=== PATIENT | female | born 1945 | race Caucasian/White ===

== ENCOUNTER 2018-11-29 10:29 | Inpatient (IN) ==
[2018-11-29] MEDS ORDERED: NORMAL SALINE 1,000 ML IV ONE (10:53)
[2018-11-29] MEDS ORDERED: MORPHINE SULFATE 2 MG/ML DISP.SYRIN IV ONE ×2 (10:53→12:58)
[2018-11-29] MEDS ORDERED: DIATRIZOATE MEGLUMINE, SODIUM 30 ML BTL PO ONE (10:53)
[2018-11-29] MEDS ORDERED: ONDANSETRON HCL/PF 2 MG/ML VIAL IV ONE (10:54)
--- NOTE | 2018-11-29 11:00 | ERNOTE ---
Abdominal HPI - Narrative Date of Service: 11/29/18 - General Chief Complaint: Abdominal Pain Time Seen by Provider: 11/29/18 10:45 Source: patient Exam Limitations: no limitations - Immun/Allergies/Home Medications Immunizatons: IMMUNIZATION HX Immunizations Up to Date Yes History of Influenza Vaccine Yes Hx Pneumococcal Vaccination Yes Allergies/Adverse Reactions: Allergies meperidine [From Demerol] Allergy (Verified 11/29/18 10:36) Home Medications: HOME MEDICATIONS Pantoprazole Sodium 40 mg PO DAILY 12/25/16 [Last Taken Unknown] Paroxetine Cr 20 mg PO DAILY 12/25/16 [Last Taken Unknown] Simvastatin 20 mg PO DAILY 12/25/16 [Last Taken Unknown] - History of Present Illness Narrative: Patient presents to the ED for 2 days of progressive symptoms that she feels is c/w her prior SBO episodes. She has had abdominal pain, vomiting (yesterdays food) and bloating. Pain waxes and wanes but can be severe. Minimal stool output. No urinary Sx. No CP or SOB. Has not seen anyone else for this. Nothing really seems to make it better or worse. has not seen anyone else for this. No blood in stool or vomit. Timing: other - fluctuating intensity Quality: severe, cramping Activities at Onset: none Modifying Factors - (Improves): Present: other - nothing Modifying Factors - (Worsens): Present: other - nothign Associated Symptoms: Present: nausea, vomiting. Absent: chest pain, fever/chills Prior Abdominal Problems: Present: similar symptoms Prior Treatment: Absent: recently seen, currently on antibiotics Review of Systems - Review of Systems Constitutional: Absent: fever ENT: Absent: sore throat Respiratory: Absent: shortness of breath Cardiology: Absent: chest pain Gastrointestinal/Abdominal: Present: See HPI Genitourinary: Absent: dysuria All Other Systems: All systems neg except as marked Medical History (Updated 11/29/18 @ 11:00 by Donn Thompson MD) Anxiety History of hysterectomy Surgical History: Surgical History (Updated 11/29/18 @ 10:39 by Dion Olivia RN) Bowel obstruction x2 History of cholecystectomy Hx of right knee surgery Hx of tubal ligation Family History: Family History (Last Reviewed 11/29/18 @ 10:58 by Donn Thompson MD) Father Heart block History of stomach ulcers Mother Heart block Social History: (Last Reviewed 11/29/18 @ 10:58 by Donn Thompson MD) Tobacco: Smoking Status: Current every day smoker Alcohol: alcohol intake: never Substance Use: substance use type: does not use Physical Exam - Physical Exam General Appearance: Present: alert, no apparent distress Head Exam: Present: normal inspection, no evidence of injury Eye Exam: Normal inspection: bilateral, PERRL: bilateral Ears, Nose, Throat: Present: normal ENT inspection Neck: Present: normal inspection, nontender Respiratory: Present: no respiratory distress, normal breath sounds, no accessory muscle use, lungs clear Cardiovascular/Chest: Present: regular rate, rhythm, normal peripheral pulses Gastrointestinal/Abdominal: Present: nondistended, soft, other - decreased bowel sounds. Mild diffuse tendneress, most prominent in LLQ. No masses or clear acute peritoneal signs Back Exam: Absent: CVA tenderness (R), CVA tenderness (L) Extremity Exam: Present: normal inspection, normal range of motion Neurological Exam: Present: alert, no motor/sensory deficits Skin Exam: Present: normal color, warm/dry Progress - Results and Orders Patient's Lab Results:: I have reviewed the patient's lab results. - Vital Signs Patient's Vital Signs:: I have reviewed the patient's vital signs. Vital Signs: Vital Signs 11/29/18 10:29 Temperature 36.0 C Pulse Rate 77 Respiratory Rate 16 Blood Pressure 140/90 H O2 Sat by Pulse Oximetry 100 - X-Ray X-Ray #1 X-Ray: chest Interpretation: Interp. by me X-ray Comments: I reviewed official radiology report - CT/Ultrasound CT/Ultrasound Narrative: I reviewed official radiology report for CT scan abd/pelvis - Progress/Reassessment Chief Complaint: Abdominal Pain Progress Note-Subjective: 11/29/18 10:59 patient states she can take morphine without difficulty 11/29/18 15:58 D/W Dr Dudley and Dr Tubbs, patient will be admitted. NG placed. D/W patient, she understands, questions answered. Departure Clinical Impression: Abdominal pain, SBO (small bowel obstruction) - Departure Disposition: Still a patient Condition: Stable
[2018-11-29 11:10] LABS: Hematocrit 41.9 % (37.0-47.0); Hemoglobin 15.1 gm/dL (12.5-16.0); Mean Corpuscular Hemoglobin 32.1 pg (27-31); Mean Platelet Volume 8.6 fl (8-12.5); Neutrophil # 10.4 K/mm3 (1.3-6.0); Neutrophil % 86.4 % (42-75.0); Platelet Count 350 K/mm3 (150-450); Red Blood Count 4.71 M/mm3 (4.2-5.4); Red Cell Distribution Width 11.7 % (11.5-14.0)
[2018-11-29 11:27] LABS: Albumin * 4.2 gm/dl (3.4-5.0); Anion Gap 11.7 mmol/L (6.8-13.8); BUN/Creatinine Ratio 11.1 (9.0-21.6); Bilirubin, Total 0.7 mg/dL (0.0-1.1); Ca. Corrected For Albumin 8.9 mg/dL (8.4-10.2); Calcium * 9.4 mg/dL (7.9-10.9); Carbon Dioxide 30.1 mmol/L (24-32.6); Potassium 3.8 mmol/L (3.4-4.6); Total Protein 7.3 gm/dL (6.2-8.2)
[2018-11-29 12:54] LABS: Urine Bilirubin Negative (NEGATIVE); Urine Blood Negative /ul (NEGATIVE); Urine Ketone Negative (NEGATIVE); Urine Nitrite Negative (NEGATIVE); Urine Protein Negative (NEGATIVE); Urine Specific Gravity <=1.005 SP.GR. (1.005-1.010); Urine Urobilinogen Normal (NORMAL); Urine pH 6.5 pH (5.0-7.0)
[2018-11-29 13:10] LABS: Urine Appearance Clear (CLEAR); Urine Color Yellow
[2018-11-29 13:12] LABS: Urine Bacteria None Seen; Urine RBC None Seen /hpf (0-5); Urine WBC 0-5 /hpf (0-5)
--- NOTE | 2018-11-29 16:53 | HP ---
Chief Complaint - Chief Complaint Date of Service: 11/29/18 Time of Service: 16:36 Chief Complaint: nausea/vomiting and abdominal pain History of Present Illness: Ivanna Renee is a 73-year-old white female with past medical history of small bowel obstructions in the past, anxiety disorder, hyperlipidemia, GERD who was admitted on 11/29/2018 because of nausea, vomiting, abdominal pain. 2 days prior to admission the patient started having mid abdominal pain 8/10 which waxed and waned and the patient took a laxative which which brought out small pebble-like stools. Her last bowel movement was 3 days ago. She says she usually goes every other day. Today her abdominal pain was associated with nausea and vomiting of about 5 times and so she went to our emergency room as just just felt like her other prior history of small bowel obstructions. She has had previous abdominal surgeries in the past and in the she had her first small bowel obstruction for which she had to undergo exploratory laparotomy with lysis of adhesions. 8 years after that she again had her second small bowel obstruction and again had to undergo surgery. In the emergency room , her WBC was elevated at [address] scan of the abdomen showed partial small bowel obstructio. The patient was admitted for further evaluation and treatment. She denies any chest pains, shortness of breath, palpitations, fever, chills. She did not have any bleeding or anesthesia complications from her prior surgeries but did have facial swelling with Demerol. Medical History (Updated 11/29/18 @ 16:52 by Jamari Tubbs MD) Anxiety History of hysterectomy Surgical History: Surgical History (Updated 11/29/18 @ 10:39 by Dion Olivia RN) Bowel obstruction x2 History of cholecystectomy Hx of right knee surgery Hx of tubal ligation Family History: Family History (Last Reviewed 11/29/18 @ 16:01 by Eva Chapa RN) Father Heart block History of stomach ulcers Mother Heart block Social History: (Last Updated 11/29/18 @ 16:02 by Eva Chapa RN) Social History: [facility]: No lives independently: Yes household members: none Tobacco: Smoking Status: Former smoker Alcohol: alcohol intake: never Substance Use: substance use type: does not use Review Of Systems (GEN) - Review of Systems Generalized/Overall Review: Absent: Chills, Fever EENTM: Absent: Blurred Vision Respiratory: Absent: Cough, Shortness of Breath, Orthopnea Cardiac: Absent: Chest Pain, Edema, Palpitations Abdominal: Present: Nausea, Vomiting, Abdominal Pain, Other - no hematemesis. Absent: Melena, Bright blood from rectum Genitourinary: Absent: Urgency, Frequency Musculoskeletal: Absent: Joint Pain, Back Pain Neurological: Present: Anxiety Skin: Absent: Lesions, Rash Endocrine: Absent: Intolerance to Cold, Intolerance to Heat Misc: All systems neg except as marked Immunizations: IMMUNIZATION HX Immunizations Up to Date Yes History of Influenza Vaccine Yes Hx Pneumococcal Vaccination Yes Allergies/Adverse Reactions: Allergies Allergy/AdvReac Type Severity Reaction Status Date / Time meperidine [From Demerol] Allergy Verified 11/29/18 16:02 Home Medications: HOME MEDICATIONS Pantoprazole Sodium 40 mg PO 1600 12/25/16 [Last Taken Unknown] Paroxetine Cr 20 mg PO 1600 12/25/16 [Last Taken Unknown] Simvastatin 20 mg PO 159912/25/16 [Last Taken Unknown] Exam - Exam Vital Signs: Vital Signs - Last Taken Temp 37.5 C 11/29/18 16:03 Pulse 64 11/29/18 16:03 Resp 15 11/29/18 16:03 BP 148/66 11/29/18 16:03 Pulse Ox 97 11/29/18 16:03 Constitutional: Present: Alert, Oriented x3, Cooperative, Thin and frail ENT Exam: Present: hearing grossly normal Eye Exam: bilateral eye: normal inspection, PERRL, EOMI Neck: Present: supple Respiratory: Present: decreased breath sounds, No rales, No wheezing Cardiovascular/Chest: Present: regular rate, rhythm, no JVD, no murmur Abdomen: Present: no rebound tenderness, tender, distended - slightly, hypoactive Extremity: Present: no pedal edema, no calf tenderness Diagnostic Studies: Abnormal Lab Results 11/29/18 11/29/18 Range/Units 11:02 11:02 WBC 12.0 H (4.0-10.5) K/mm3 MCH 32.1 H (27-31) pg Immature Gran # (Auto) 0.05 H (0.000-0.0310) K/mm3 Neutrophils % 86.4 H (42-75.0) % Lymphocytes % 7.8 L (20-51) % Neutrophils # 10.4 H (1.3-6.0) K/mm3 Lymphocytes # 0.93 L (1.5-3.5) k/mm3 Sodium 130 L (132-142) mmol/L Chloride 92 L (97-106) mmol/L Random Glucose 124 H (70-110) mg/dL Laboratory Results WBC 12.0 K/mm3 (4.0-10.5) H 11/29/18 11:02 RBC 4.71 M/mm3 (4.2-5.4) 11/29/18 11:02 Hgb 15.1 gm/dL (12.5-16.0) 11/29/18 11:02 Hct 41.9 % (37.0-47.0) 11/29/18 11:02 MCV 89.0 fl (78-100) 11/29/18 11:02 MCH 32.1 pg (27-31) H 11/29/18 11:02 MCHC 36.0 g/dl (32-36) 11/29/18 11:02 RDW 11.7 % (11.5-14.0) 11/29/18 11:02 Plt Count 350 K/mm3 (150-450) 11/29/18 11:02 MPV 8.6 fl (8-12.5) 11/29/18 11:02 Immature Gran % (Auto) 0.40 % (0.001-0.429) 11/29/18 11:02 Immature Gran # (Auto) 0.05 K/mm3 (0.000-0.0310) H 11/29/18 11:02 86.4 % (42-75.0) H 11/29/18 11:02 7.8 % (20-51) L 11/29/18 11:02 4.6 % (0.0-9) 11/29/18 11:02 0.5 % (0.0-3.0) 11/29/18 11:02 0.3 % (0.0-1.0) 11/29/18 11:02 Nucleated RBC % 0.0 k/mm3 (0-1) 11/29/18 11:02 10.4 K/mm3 (1.3-6.0) H 11/29/18 11:02 0.93 k/mm3 (1.5-3.5) L 11/29/18 11:02 0.6 k/mm3 (0.0-1.0) 11/29/18 11:02 0.1 k/mm3 (0.0-0.7) 11/29/18 11:02 Absolute Basophils 0.0 k/mm3 (0.0-0.1) 11/29/18 11:02 Sodium 130 mmol/L (132-142) L 11/29/18 11:02 130 mmol/L (130-142) 11/29/18 11:02 Potassium 3.8 mmol/L (3.4-4.6) 11/29/18 11:02 Chloride 92 mmol/L (97-106) L 11/29/18 11:02 Carbon Dioxide 30.1 mmol/L (24-32.6) 11/29/18 11:02 11.7 mmol/L (6.8-13.8) 11/29/18 11:02 BUN 7 mg/dL (3-23) 11/29/18 11:02 0.63 mg/dL (0.4-1.4) 11/29/18 11:02 Est GFR (Non-Af Amer) 98 mL/min (60-130) 11/29/18 11:02 11.1 (9.0-21.6) 11/29/18 11:02 124 mg/dL (70-110) H 11/29/18 11:02 Calcium 9.4 mg/dL (7.9-10.9) 11/29/18 11:02 Calcium Adj for Albumin 8.9 mg/dL (8.4-10.2) 11/29/18 11:02 0.7 mg/dL (0.0-1.1) 11/29/18 11:02 AST 22 U/L (0-48) 11/29/18 11:02 ALT 20 U/L (19-67) 11/29/18 11:02 71 U/L (50-170) 11/29/18 11:02 7.3 gm/dL (6.2-8.2) 11/29/18 11:02 4.2 gm/dl (3.4-5.0) 11/29/18 11:02 Amylase 72 U/L (25-115) 11/29/18 11:02 116 U/L (73-393) 11/29/18 11:02 Yellow 11/29/18 12:45 Clear (CLEAR) 11/29/18 12:45 6.5 pH (5.0-7.0) 11/29/18 12:45 Ur Specific [place] <=1.005 SP.GR. (1.005-1.010) 11/29/18 12:45 Negative mg/dL (NEGATIVE) 11/29/18 12:45 Negative mg/dL (NEGATIVE) 11/29/18 12:45 Negative mg/dL (NEGATIVE) 11/29/18 12:45 Negative /ul (NEGATIVE) 11/29/18 12:45 Negative (NEGATIVE) 11/29/18 12:45 Negative mg/dl (NEGATIVE) 11/29/18 12:45 Normal EU/dl (NORMAL) 11/29/18 12:45 Ur Leukocyte Esterase Negative /ul (NEGATIVE) 11/29/18 12:45 None seen /hpf (0-5) 11/29/18 12:45 0-5 /hpf (0-5) 11/29/18 12:45 Ur Epithelial Cells 0-5 /hpf (0-5) 11/29/18 12:45 None seen (NONE) 11/29/18 12:45 No culture indicated 11/29/18 12:45 Assessment/Plan - Narrative Narrative: Abdominal pain, nausea, vomiting secondary to partial small bowel obstruction on CT scan. We will keep patient n.p.o. and continue with IV fluids and IV pain medication. An NGT has been inserted in the emergency room and the tip is in the mid abdomen. Surgical consult has been put by emergency room doctor and she will be seeing the patient. Hopefully the patient will open up by herself conservatively but if the patient will need exploratory laparotomy she may proceed with anticipated procedure pending EKG. Her chest x-ray showed no acute cardiopulmonary findings. - Assessment/Plan (1) Abdominal pain Problem: Acute Qualifiers: Abdominal location: unspecified location Qualified Code(s): R10.9 - Unspecified abdominal pain (2) SBO (small bowel obstruction) Assessment: partial on CTS Problem: Acute (3) Anxiety disorder Problem: Chronic Qualifiers: Anxiety disorder type: generalized anxiety disorder Qualified Code(s): F41.1 - Generalized anxiety disorder (4) GERD (gastroesophageal reflux disease) Problem: Chronic Qualifiers: Esophagitis presence: esophagitis presence not specified Qualified Code(s): K21.9 - Gastro-esophageal reflux disease without esophagitis
[2018-11-29] MEDS ORDERED: ONDANSETRON HCL/PF 2 MG/ML VIAL IV PRN (16:54)
[2018-11-29] MEDS ORDERED: MORPHINE SULFATE 4 MG/ML SYRG IV PRN (16:55)
[2018-11-29] MEDS: PANTOPRAZOLE SODIUM 40 MG in NORMAL SALINE 100 ML IV SCH (17:06)
[2018-11-29] MEDS: DEXTROSE 5%-NORMAL SALINE 1,000 ML IV PRN (17:19)
[2018-11-30] MEDS: DEXTROSE 5%-NORMAL SALINE 1,000 ML IV PRN (03:30)
[2018-11-30 06:15] LABS: Hematocrit 34.7 % (37.0-47.0); Hemoglobin 12.2 gm/dL (12.5-16.0); Mean Cell Volume 90.8 fl (78-100); Mean Corpuscular Hemoglobin 31.9 pg (27-31); Mean Corpuscular Hgb Conc 35.2 g/dl (32-36); Mean Platelet Volume 9.2 fl (8-12.5); Neutrophil # 5.2 K/mm3 (1.3-6.0); Neutrophil % 69.9 % (42-75.0); Platelet Count 279 K/mm3 (150-450); Red Blood Count 3.82 M/mm3 (4.2-5.4); Red Cell Distribution Width 11.9 % (11.5-14.0); White Blood Count 7.4 K/mm3 (4.0-10.5)
[2018-11-30 06:29] LABS: Albumin * 2.8 gm/dl (3.4-5.0); Anion Gap 9.8 mmol/L (6.8-13.8); BUN/Creatinine Ratio 6.5 (9.0-21.6); Bilirubin, Total 0.6 mg/dL (0.0-1.1); Ca. Corrected For Albumin 8.3 mg/dL (8.4-10.2); Calcium * 7.7 mg/dL (7.9-10.9); Carbon Dioxide 27.5 mmol/L (24-32.6); Potassium 3.3 mmol/L (3.4-4.6); Total Protein 5.2 gm/dL (6.2-8.2)
[2018-11-30] MEDS: POTASSIUM CHLORIDE 20 MEQ in DEXTROSE 5%-NORMAL SALINE 990 ML IV SCH ×2 (07:57→16:35)
--- NOTE | 2018-11-30 09:56 | CONS ---
[facility] - General Date of Service: 11/29/18 Narrative: pSBO Source: patient Exam Limitations: no limitations - History of Present Illness Initial Comments: Sandra is a pleasant 73-year-old female who presented to the emergency room and was found to have a partial small bowel obstruction. She started to feel poorly yesterday. She has a history of 2 previous small bowel obstructions. Her for small bowel obstruction was in 1996 and required surgery. 10 years later she had another small bowel obstruction and required surgery. She had a colonoscopy before 1996. Her symptoms included abdominal pain, vomiting and bloating. She had a small bowel movement this morning. Timing/Duration: 24 hours Severity: moderate Modifying Factors - (Worsens): Reports: eating Modifying Factors - (Improves): Reports: immobilization Associated Symptoms: denies symptoms Allergies/Adverse Reactions: Allergies meperidine [From Demerol] Allergy (Verified 11/29/18 16:02) Home Medications: Home Medications Medication Instructions Recorded Last Taken Pantoprazole Sodium 40 mg PO 1600 12/25/16 Unknown Paroxetine Cr 20 mg PO 1600 12/25/16 Unknown Simvastatin 20 mg PO 1600 12/25/16 Unknown Medications - Medications Current Medications: Current Medications Pantoprazole Sodium 40 mg/ (Sodium Chloride) 100 mls @ 400 mls/hr IV Q24H ENID Stop: 12/29/18 17:01 Last Infusion: 11/29/18 17:21 Dose: Infused Documented by: Potassium Chloride 20 meq/ (Dextrose/Sodium Chloride) 1,000 mls @ 125 mls/hr IV .Q8H ENDI Stop: 12/30/18 07:46 Last Admin: 11/30/18 07:57 Dose: 125 mls/hr Documented by: Review of Systems - Review of Systems Generalized/Overall Review: Present: Malaise EENTM: Present: No Symptoms Reported Respiratory: Present: No Symptoms Reported Cardiac: Present: No Symptoms Reported Abdominal: Present: Nausea, Vomiting, Abdominal Pain Genitourinary: Present: No Symptoms Reported Musculoskeletal: Present: No Symptoms Reported Neurological: Present: No Symptoms Reported Skin: Present: No Symptoms Reported Endocrine: Present: No Symptoms Reported Physical Examination - Exam Vital Signs: Vital Signs - Last Taken Temp 37.0 C 11/30/18 06:00 Pulse 96 11/30/18 06:00 Resp 20 11/30/18 06:00 BP 114/55 11/30/18 06:00 Pulse Ox 96 11/30/18 06:00 O2 Oxygen Delivery Method Room Air Constitutional: Present: Alert, Oriented x3, Cooperative ENT Exam: Present: hearing grossly normal Eye Exam: bilateral eye: normal inspection Neck: Present: supple, trachea midline Breasts: Present: Exam deferred Respiratory: Present: lungs clear, normal breath sounds Cardiovascular/Chest: Present: regular rate, rhythm Abdomen: Present: Normal bowel sounds, soft, tender. Absent: guarding, ri gidity, rebound tenderness /Rectal: Present: Exam deferred Extremity: Present: normal range of motion Skin Exam: Present: normal color Lymphatic: Present: no adenopathy Neurologic: Present: documentation coordinator II-XII nml as tested Appearance: Present: appropriate appearance, appropriate insight Eye contact: Present: cooperative, good eye contact Thoughts: Present: normal thought pattern - Results and Findings: Lab/Microbiology results last 24 hrs: Abnormal/Pending Laboratory Last 24 HRS 11/30/18 11/30/18 11/29/18 06:13 06:13 11:02 WBC RBC 3.82 L Hgb 12.2 L Hct 34.7 L MCH 31.9 H Immature Gran # (Auto) Neutrophils % Lymphocytes % 17.5 L Monocytes % 9.4 H Neutrophils # Lymphocytes # 1.30 L Sodium 130 L Potassium 3.3 L Chloride 92 L BUN/Creatinine Ratio 6.5 L Random Glucose 124 H Calcium 7.7 L Calcium Adj for Albumin 8.3 L ALT 14 L Total Protein 5.2 L Albumin 2.8 L 11/29/18 11:02 WBC 12.0 H RBC Hgb Hct MCH 32.1 H Immature Gran # (Auto) 0.05 H Neutrophils % 86.4 H Lymphocytes % 7.8 L Monocytes % Neutrophils # 10.4 H Lymphocytes # 0.93 L Sodium Potassium Chloride BUN/Creatinine Ratio Random Glucose Calcium Calcium Adj for Albumin ALT Total Protein Albumin - Assessments/Findings (1) Abdominal pain Problem: Acute Qualifiers: Abdominal location: unspecified location Qualified Code(s): R10.9 - Unspecified abdominal pain (2) SBO (small bowel obstruction) Problem: Acute Plan - Plan Plan: NG tube has been placed. Continue with conservative management with bowel rest and IV fluids. Reevaluate in the a.m.
--- NOTE | 2018-11-30 09:57 | PN ---
Dictated Progress Note - Date and Time Seen: Date: 11/30/18 Time: 08:00 - Progress Note Narrative: doing well, had multiple bm and flatus, no abd pain, no n/v Vital Signs - Last Taken Temp 37.0 C 11/30/18 06:00 Pulse 96 11/30/18 06:00 Resp 20 11/30/18 06:00 BP 114/55 11/30/18 06:00 Pulse Ox 96 11/30/18 06:00 Abnormal/Pending Laboratory Last 24 HRS 11/30/18 11/30/18 11/29/18 06:13 06:13 11:02 WBC RBC 3.82 L Hgb 12.2 L Hct 34.7 L MCH 31.9 H Immature Gran # (Auto) Neutrophils % Lymphocytes % 17.5 L Monocytes % 9.4 H Neutrophils # Lymphocytes # 1.30 L Sodium 130 L Potassium 3.3 L Chloride 92 L BUN/Creatinine Ratio 6.5 L Random Glucose 124 H Calcium 7.7 L Calcium Adj for Albumin 8.3 L ALT 14 L Total Protein 5.2 L Albumin 2.8 L 11/29/18 11:02 WBC 12.0 H RBC Hgb Hct MCH 32.1 H Immature Gran # (Auto) 0.05 H Neutrophils % 86.4 H Lymphocytes % 7.8 L Monocytes % Neutrophils # 10.4 H Lymphocytes # 0.93 L Sodium Potassium Chloride BUN/Creatinine Ratio Random Glucose Calcium Calcium Adj for Albumin ALT Total Protein Albumin NAD abd soft, non distended, non tender Imp: pSBO resolving Plan: clamp NG tube and dc in 6 hours if no n/v clears
--- NOTE | 2018-11-30 10:25 | PN ---
Subjective - Date and Time Seen Date: 11/30/18 Time: 10:23 Subjective Narrative: patient feeling better. passing gas. K is slightly low Objective - Review of Systems Generalized/Overall Review: Denies: Chills, Fever EENTM: Denies: Blurred Vision Respiratory: Denies: Cough, Shortness of Breath Cardiac: Denies: Chest Pain, Edema, Palpitations Abdominal: Reports: Abdominal Pain - siginificantly down. Denies: Nausea, Vomiting Genitourinary Symptoms: Denies: Urgency, Frequency Musculoskeletal Complaints: Reports: Joint Pain. Denies: Back Pain Neurological: Denies: Anxiety, Depressed Skin: Denies: Rash Endocrine: Denies: Intolerance to Cold, Intolerance to Heat - Vitals Vitals: Last Vital Signs Temp 37.0 C 11/30/18 06:00 Pulse 96 11/30/18 06:00 Resp 20 11/30/18 06:00 BP 114/55 11/30/18 06:00 Pulse Ox 96 11/30/18 06:00 - Abnormal Lab Findings Abnormal Lab Findings: Abnormal Lab Results 11/29/18 11/29/18 11/30/18 Range/Units 11:02 11:02 06:13 WBC 12.0 H (4.0-10.5) K/mm3 RBC 3.82 L (4.2-5.4) M/mm3 Hgb 12.2 L (12.5-16.0) gm/dL Hct 34.7 L (37.0-47.0) % MCH 32.1 H 31.9 H (27-31) pg Immature Gran # (Auto) 0.05 H (0.000-0.0310) K/mm3 Neutrophils % 86.4 H (42-75.0) % Lymphocytes % 7.8 L 17.5 L (20-51) % Monocytes % 9.4 H (0.0-9) % Neutrophils # 10.4 H (1.3-6.0) K/mm3 Lymphocytes # 0.93 L 1.30 L (1.5-3.5) k/mm3 Sodium 130 L (132-142) mmol/L Potassium (3.4-4.6) mmol/L Chloride 92 L (97-106) mmol/L BUN/Creatinine Ratio (9.0-21.6) Random Glucose 124 H (70-110) mg/dL Calcium (7.9-10.9) mg/dL Calcium Adj for Albumin (8.4-10.2) mg/dL ALT (19-67) U/L Total Protein (6.2-8.2) gm/dL Albumin (3.4-5.0) gm/dl 11/30/18 Range/Units 06:13 WBC (4.0-10.5) K/mm3 RBC (4.2-5.4) M/mm3 Hgb (12.5-16.0) gm/dL Hct (37.0-47.0) % MCH (27-31) pg Immature Gran # (Auto) (0.000-0.0310) K/mm3 Neutrophils % (42-75.0) % Lymphocytes % (20-51) % Monocytes % (0.0-9) % Neutrophils # (1.3-6.0) K/mm3 Lymphocytes # (1.5-3.5) k/mm3 Sodium (132-142) mmol/L Potassium 3.3 L (3.4-4.6) mmol/L Chloride (97-106) mmol/L BUN/Creatinine Ratio 6.5 L (9.0-21.6) Random Glucose (70-110) mg/dL Calcium 7.7 L (7.9-10.9) mg/dL Calcium Adj for Albumin 8.3 L (8.4-10.2) mg/dL ALT 14 L (19-67) U/L Total Protein 5.2 L (6.2-8.2) gm/dL Albumin 2.8 L (3.4-5.0) gm/dl - Exam Constitutional: Present: Alert, Oriented x3, Cooperative, Elderly, Thin and frail ENT Exam: Present: hearing grossly normal Neck: Present: supple Respiratory: Present: normal breath sounds, No rales, No wheezing Cardiovascular/Chest: Present: regular rate, rhythm, no JVD, no murmur Abdomen: Present: soft, nontender, nondistended Assessment/Plan - Problems/Diagnosis (1) Abdominal pain Problem: Acute Qualifiers: Abdominal location: unspecified location Qualified Code(s): R10.9 - Unspecified abdominal pain Narrative: significantly improved, (2) SBO (small bowel obstruction) Problem: Acute Narrative: clinically resolving. Surgery has seen her and clamped the NGT and if no N/V will be started on clear fuids. k replacment started. (3) Anxiety disorder Problem: Chronic Qualifiers: Anxiety disorder type: generalized anxiety disorder Qualified Code(s): F41. 1 - Generalized anxiety disorder (4) GERD (gastroesophageal reflux disease) Problem: Chronic Qualifiers: Esophagitis presence: esophagitis presence not specified Qualified Code(s): K21.9 - Gastro-esophageal reflux disease without esophagitis
[2018-11-30] MEDS: PANTOPRAZOLE SODIUM 40 MG in NORMAL SALINE 100 ML IV SCH (16:36)
[2018-12-01] MEDS: POTASSIUM CHLORIDE 20 MEQ in DEXTROSE 5%-NORMAL SALINE 990 ML IV SCH ×2 (01:04→17:44)
--- NOTE | 2018-12-01 08:49 | PN ---
Dictated Progress Note - Date and Time Seen: Date: 12/01/18 Time: 08:48 - Progress Note Narrative: feeling better, abd pain resolved, having flatus, no bm, ready to advance diet Vital Signs - Last Taken Temp 36.9 C 12/01/18 06:50 Pulse 71 12/01/18 06:50 Resp 18 12/01/18 06:50 BP 141/70 12/01/18 06:50 Pulse Ox 98 12/01/18 06:50 NAD abd soft, non tender non labored respirations Imp: resolved SBO Plan: ADAT dc home when fritz diet
--- NOTE | 2018-12-01 10:22 | PN ---
Subjective - Date and Time Seen Date: 12/01/18 Time: 10:17 Subjective Narrative: Patient clinically improving. had BM , small thin ribbon like stools this morning. she starts bland solids today and surgery says if she tolerates , she can go home. patient would prefer to stay overnight and make sure there will be no complication as in the past , she started solids and had to come back that day and get operated on for obstruction. Objective - Review of Systems Generalized/Overall Review: Denies: Chills, Fever EENTM: Denies: Blurred Vision Respiratory: Denies: Cough, Shortness of Breath Cardiac: Denies: Chest Pain, Edema, Palpitations Abdominal: Denies: Nausea, Vomiting, Abdominal Pain Genitourinary Symptoms: Denies: Urgency, Frequency Musculoskeletal Complaints: Denies: Joint Pain, Back Pain Neurological: Denies: Headache Skin: Denies: Rash Endocrine: Denies: Intolerance to Cold, Intolerance to Heat - Vitals Vitals: Last Vital Signs Temp 36.9 C 12/01/18 06:50 Pulse 71 12/01/18 06:50 Resp 18 12/01/18 06:50 BP 141/70 12/01/18 06:50 Pulse Ox 98 12/01/18 06:50 - Exam Constitutional: Present: Alert, Oriented x3, Cooperative, Elderly ENT Exam: Present: hearing grossly normal Neck: Present: supple. Absent: lymphadenopathy (R), lymphadenopathy (L) Respiratory: Present: normal breath sounds, No rales, No wheezing Cardiovascular/Chest: Present: regular rate, rhythm, no JVD, no murmur Abdomen: Present: Normal bowel sounds, soft, nontender, nondistended Extremity: Present: no pedal edema, no calf tenderness Assessment/Plan Plan Narrative: ADAT. possible discharge in the morning. - Problems/Diagnosis (1) Abdominal pain Problem: Resolved Qualifiers: Abdominal location: unspecified location Qualified Code(s): R10.9 - Unspecified abdominal pain (2) SBO (small bowel obstruction) Problem: Resolved (3) Anxiety disorder Problem: Chronic Qualifiers: Anxiety disorder type: generalized anxiety disorder Qualified Code(s): F41.1 - Generalized anxiety disorder (4) GERD (gastroesophageal reflux disease) Problem: Chronic Qualifiers: Esophagitis presence: esophagitis presence not specified Qualified Code(s): K21.9 - Gastro-esophageal reflux disease without esophagitis
[2018-12-01] MEDS: PANTOPRAZOLE SODIUM 40 MG in NORMAL SALINE 100 ML IV SCH (17:45)
--- NOTE | 2018-12-02 07:58 | DS ---
(1) Abdominal pain Problem: Resolved Qualifiers: Abdominal location: unspecified location Qualified Code(s): R10.9 - Unspecified abdominal pain (2) SBO (small bowel obstruction) Problem: Resolved (3) Anxiety disorder Problem: Chronic Qualifiers: Anxiety disorder type: generalized anxiety disorder Qualified Code(s): F41.1 - Generalized anxiety disorder (4) GERD (gastroesophageal reflux disease) Problem: Chronic Qualifiers: Esophagitis presence: esophagitis presence not specified Qualified Code(s): K21.9 - Gastro-esophageal reflux disease without esophagitis Description of Stay: Sandra Aj is a 73-year-old white female with past medical history of small bowel obstructions in the past, anxiety disorder, hyperlipidemia, GERD who was admitted on 11/29/2018 because of nausea, vomiting, abdominal pain. 2 days prior to admission the patient started having mid abdominal pain 8/10 which waxed and waned and the patient took a laxative which which brought out small pebble-like stools. Her last bowel movement was 3 days [employer]. She says she usually goes every other day. On the day of admission her abdominal pain was associated with nausea and vomiting of about 5 times and so she went to our emergency room as she just felt like her other prior history of small bowel obstructions. She has had previous abdominal surgeries in the past and in the she had her first small bowel obstruction for which she had to undergo exploratory laparotomy with lysis of adhesions. 8 years after that she again had her second small bowel obstruction and again had to undergo surgery. In the emergency room , her WBC was elevated at [address] scan of the abdomen showed partial small bowel obstruction. The patient was admitted for further evaluation and treatment. She denied any chest pains, shortness of breath, palpitations, fever, chills. She did not have any bleeding or anesthesia complications from her prior surgeries but did have facial swelling with Demerol. Surgery was consulted. She was kept NPO, on IVF, IV pain meds and NGT was inserted and connected to LIS. Clinically she started opening up and her NGT was clamped. She had no further N/V and she started passing gas. Her diet was advanced as tolerated and she has been making stool now. she is stable to be discharged to follow up with her PCP in 1 week. Procedures Performed: none Results and Findings: Lab Pending Results 11/29/18 11:02: WBC 12.0 H, RBC 4.71, Hgb 15.1, Hct 41.9, MCV 89.0, MCH 32.1 H, MCHC 36.0, RDW 11.7, Plt Count 350, MPV 8.6, Immature Gran % (Auto) 0.40, Immature Gran # (Auto) 0.05 H, Neutrophils % 86.4 H, Lymphocytes % 7.8 L, Monocytes % 4.6, Eosinophils % 0.5, Basophils % 0.3, Nucleated RBC % 0.0, Neutrophils # 10.4 H, Lymphocytes # 0.93 L, Monocytes # 0.6, Eosinophils # 0.1, Absolute Basophils 0.0 11/29/18 11:02: Sodium 130 L, Plasma Sodium 130, Potassium 3.8, Chloride 92 L, Carbon Dioxide 30.1, Anion Gap 11.7, BUN 7, Creatinine 0.63, Est GFR (Non-Af Amer) 98, BUN/Creatinine Ratio 11.1, Random Glucose 124 H, Calcium 9.4, Calcium Adj for Albumin 8.9, Total Bilirubin 0.7, AST 22, ALT 20, Alkaline Phosphatase 71, Total Protein 7.3, Albumin 4.2, Amylase 72, Lipase 116 11/29/18 12:45: Urine Color Yellow, Urine Appearance Clear, Urine pH 6.5, Ur Specific Erwin <=1.005, Urine Protein Negative, Urine Glucose (UA) Negative, Urine Ketones Negative, Urine Blood Negative, Urine Nitrate Negative, Urine Bilirubin Negative, Urine Urobilinogen Normal, Ur Leukocyte Esterase Negative, Urine RBC None seen, Urine WBC 0-5, Ur Epithelial Cells 0-5, Urine Bacteria None seen, Urine Culture Comments No culture indicated 11/30/18 06:13: WBC 7.4 D, RBC 3.82 L, Hgb 12.2 L, Hct 34.7 L, MCV 90.8, MCH 31.9 H, MCHC 35.2, RDW 11.9, Plt Count 279, MPV 9.2, Immature Gran % (Auto) 0.40, Immature Gran # (Auto) 0.03, Neutrophils % 69.9, Lymphocytes % 17.5 L, Monocytes % 9.4 H, Eosinophils % 2.4, Basophils % 0.4, Nucleated RBC % 0.0, Neutrophils # 5.2, Lymphocytes # 1.30 L, Monocytes # 0.7, Eosinophils # 0.2, Absolute Basophils 0.0 11/30/18 06:13: Sodium 140, Plasma Sodium 140, Potassium 3.3 L, Chloride 106, Carbon Dioxide 27.5, Anion Gap 9.8, BUN 4, Creatinine 0.62, Est GFR (Non-Af Amer) 100, BUN/Creatinine Ratio 6.5 L, Random Glucose 109, Calcium 7.7 L, Calcium Adj for Albumin 8.3 L, Total Bilirubin 0.6, AST 19, ALT 14 L, Alkaline Phosphatase 56, Total Protein 5.2 L, Albumin 2.8 L Discharge Location: Home Disposition: Home self-care Condition: Stable Discharge Activity: Activity as tolerated Discharge Diet: Other - bland diet Referrals: Fabricio Diaz MD [Primary Care Provider] - Additional Patient Instructions (free text): -Please make TCM appointment unless long-term discharge, or if following up with outside provider. Thank you! Chante @ [id number] or Jonna at [phone]. Follow up with her PCp, Dr. Ward. Complete Home Medications List: Complete Home Medication List: Pantoprazole Sodium 40 mg PO 1600 12/25/16 Paroxetine Cr 20 mg PO 1600 12/25/16 Simvastatin 20 mg PO 159912/25/16
[2018-12-02 09:33] VITALS: BP 118/58
== END 2018-12-02 09:35 | disposition home or self-care (01) | DRG 390 ==
LOC: MS 10:29 → ER 10:29 → MS 16:01
PROVIDERS: ADMIT Internal Medicine; ATTEND Internal Medicine
CPT/HCPCS: 36415; 71010; 71045; 74177; 80053; 81001; 82150; 83690; 85025; 93005; 96361; 96374; 96375; 96376; 99285; J2405; Q9963; Q9967